=== PATIENT | female | born 1980 | race American Indian/Alaskan Native ===

== ENCOUNTER 2016-10-01 19:49 | Inpatient (IN) | payer BC, OTHER ==
[2016-10-01 20:26] VITALS: BMI 19.4
[2016-10-01] MEDS ORDERED: Lactated Ringer's 1,000 ML IV SCH (21:04)
--- NOTE | 2016-10-01 21:18 | OBHP ---
Datetime: 10/01/2016 21:07 IP Adm Impression: Term, intrauterine ; No Active Labor; Ruptured Membranes IP Admit Plan: Admit to unit Admit Comment, IP Provider: The patient is a 35-year-old 1 para 0 estimated due date 017 estimated gestational age 39 weeks. Patient presents to [facility] states she ruptured membranes at 4:45 PM on 09/30/2016. Patient states she went to [facility] in [place] was evaluated and was discharged home. Patient states she saw her provider today was evaluated and was told she had light meconium. The patient was referred to [facility] but wanted to deliver closer to her home, [place] so the patient came to [facility]. Brittany ent reports good movement no vaginal bleeding reports leakage of fluid. Patient states her pren ata care has been unremarkable. 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 Patient partner a nd trolley coach driver will think about it. I discussed the risks of expectant management I'd I discussed risk of a ugmentation the patient was given the opportunity to ask questions she was informed of the risks bene fits and alternatives to each. The patient's wishes to be respected. Patient for admission, routine labs, IV fluid hydration, Bedside sonogram vertex presentation, adequate pelvis, estimated weight 6 pounds. Pelvic Type - PN: Adequate Extremities - PN: Normal Abdomen - PN: Normal Back - PN: Normal Breast - PN: Not Done Lungs - PN: Normal Heart - PN: Normal Thyroid - PN: Normal Neurologic - PN: Normal HEENT - PN: Normal General - PN: Normal Weight - Estimated: 6 Presentation-Admit: Vertex FHR - Baseline A Provider: 145 Gestation - Est Wks by US: 39.0 Vital Signs Provider: Reviewed IP Chief Complaint: Suspected ruptured membranes; evaluation NICHD Variability Prov Fetus A: Moderate 6-25bpm NICHD Decel Fetus A IP Provider: None Dilatation, Provider: 3 Effacement, Provider: 90 Station, Provider: -2 Genitourinary Exam: Normal DTRs - PN: Normal
[2016-10-01] MEDS ORDERED: Penicillin G Potassium 5 MU in Sodium Chloride 0.9% 50 ML IVPB ONE (21:38)
[2016-10-01] MEDS ORDERED: Oxytocin 30 units/LR 500ML 30 U/500 ML BAG IV ONE ×2 (21:43→22:11)
[2016-10-01 22:08] LABS: BASO % 0.3 % (0.0-2.0); EOS # 0.1 K/uL (0.0-0.7); EOS % 0.6 % (0.0-4.0); HEMATOCRIT 31.9 % (34.0-47.0); LYMPH # 1.4 K/uL (1.0-4.3); LYMPH % 15.8 % (20.0-40.0); MEAN CELL VOLUME 94.6 fl (81.0-99.0); MEAN CORPUSCULAR HEMOGLOBIN 31.5 pg (27.0-31.0); MEAN CORPUSCULAR HGB CONC 33.3 g/dL (33.0-37.0); MEAN PLATELET VOLUME 9.2 fl (7.2-11.7); MONO # 0.8 K/uL (0.0-0.8); MONO % 8.8 % (0.0-10.0); NEUT # 6.5 K/uL (1.8-7.0); NEUT % 74.5 % (50.0-75.0); RED CELL DISTRIBUTION WIDTH 15.9 % (11.5-14.5); WHITE BLOOD COUNT 8.7 K/uL (4.8-10.8)
--- NOTE | 2016-10-01 22:14 | OBPN ---
Datetime: 10/01/2016 21:07 FHR - Baseline A Provider: 145 Gestation - Est Wks by US: 39.0 Weight - Estimated: 6 Presentation-Admit: Vertex IP Progress Note Comment: Discussed plan of care with patient and partner we discussed antibiotics w e discussed Pitocin augmentation. Patient states she is doing fine at the moment she has not felt feb rile she declines antibiotics like to proceed with Pitocin. We discussed risks benefits and alternati ves to expectant management we discussed antibiotic prophylaxis due to prolonged ruptured membranes t he patient was given the opportunity ask questions and all questions answered patient's wishes respec yvette Vital Signs Provider: Reviewed NICHD Variability Prov Fetus A: Moderate 6-25bpm Dilatation, Provider: 3 Effacement, Provider: 90 Station, Provider: -2 NICHD Decel Fetus A IP Provider: None
[2016-10-02] MEDS ORDERED: Oxycodone/Acetaminophen 5/325 mg Tab PO PRN ×2 (06:19)
[2016-10-02] MEDS ORDERED: Oxytocin 30 units/LR 500ML 30 U/500 ML BAG IV SCH (06:19)
--- NOTE | 2016-10-02 06:32 | OBDS ---
MATERNAL INFORMATION Provider Comments: Delivered live baby boy over a loose nuchal cord at 5:54 AM, the baby was bulb canchola ctioned on the perineum and transferred to maternal chest. Pediatrics was in attendance due to modera te meconium. The baby was handed off to the awaiting pediatricians for evaluation. The cord was clamp ed and cut and 3 vessels noted cord blood was obtained and sent to the lab. The placenta was delivere d at 6 AM intact, the estimated blood loss was 150 mL. There was a first-degree laceration was repair ed with 2-0 Rapide. The mother tolerated the procedure well and the baby went to the nursery with Apg ars of 9 and 9 VAGINAL DELIVERY Episiotomy: None Laceration Extension: First Degree Laceration Type: Perineal Laceration Repair: Yes Sponge Count Correct: Yes Sharps Count Correct: Yes
[2016-10-03 07:39] LABS: HEMATOCRIT 30.9 % (34.0-47.0); MEAN CELL VOLUME 94.9 fl (81.0-99.0); MEAN CORPUSCULAR HEMOGLOBIN 31.6 pg (27.0-31.0); MEAN CORPUSCULAR HGB CONC 33.3 g/dL (33.0-37.0); RED CELL DISTRIBUTION WIDTH 16.1 % (11.5-14.5); WHITE BLOOD COUNT 13.7 K/uL (4.8-10.8)
--- NOTE | 2016-10-03 11:03 | OBPPN ---
Datetime: 10/03/2016 08:25 PP Pain Prov: Within normal limits PP Nausea Prov: Denies PP Flatus Prov: Yes PP BM Prov: No PP Breasts Prov: Normal PP Heart Prov: Normal PP Lungs Prov: Normal PP Abdomen/Uterus Prov: Normal PP Lochia Prov: Normal PP Vulva/Perineum Prov: Normal PP CVA Tenderness Prov: Normal PP Extremities Prov: Normal PP C/S Incision Prov: Not Applicable PP Progress Prov: Normal PP Comments Phys Exam Prov: not acute distress Lungs CTA B/L RRR, S1S2 Abd: Soft, uterus umb level, non distended. BS+. No calf tenderness Alert and oriented PP Impression Prov: Normal progression PP Plan Prov: Continue present management PP Progress Note Prov: S: Patient seen at bedside on PPD1 in good mood. Denies CP, SOB, calf pain, p alpitations, dizziness, nausea or vomiting. Lochia is less than menses. Pain controlled with pain med s. Tolerating PO diet well. + Flatus no BM yet. Breast and bottle feeding. PE: See above A_P: 35 y/o in PPD1 normal progression -C/w current plan -Motrin and percocet PRN for pain -Reg diet -Encourage ambulation and -Anticipated DC 10/04/16 Mike Vargas PGY2 The patient was seen with the resident and I agree with the note Encourage ambulation, Motrin as needed, anticipate discharge in a.m. IP PP Procedures: None Vital Signs Provider PP: Reviewed; Within Normal Limits
--- NOTE | 2016-10-04 12:50 | OBPPN ---
Datetime: 10/04/2016 11:28 PP Nausea Prov: Denies PP Flatus Prov: Yes PP BM Prov: Yes PP Breasts Prov: Normal PP Heart Prov: Normal PP Lungs Prov: Normal PP Abdomen/Uterus Prov: Normal PP Lochia Prov: Normal PP Vulva/Perineum Prov: Normal PP CVA Tenderness Prov: Normal PP Extremities Prov: Normal PP C/S Incision Prov: Normal PP Progress Prov: Normal PP Comments Phys Exam Prov: not acute distress Lungs CTA B/L RRR, S1S2 Abd: Soft, uterus umb level, non distended. BS+. No calf tenderness Alert and oriented breast nonengorged PP Impression Prov: Normal progression PP Plan Prov: Discharge PP Progress Note Prov: 35 yo female now seen at bedside on PPD2, not in acute distress. Denies CP, SOB, calf pain, palpitations, dizziness, nausea or vomiting. Lochia is less than menses. Pain con trolled with pain meds. Tolerating PO diet well. Pt reports +BM and flatus. Breast and bottle feedin g. PE: See above A_P: 35 y/o in PPD2 uncomplicated -Ibuprofen 600 mg q6h PRN for pain -Reg diet -Encourage ambulation and -Discharge to home today Sultan Dumont, PGY-1 [facility] ADDENDUM: pt seen _ examined by me. agree with above assessment and plan. - benefits of reinforced. IP PP Procedures: None Vital Signs Provider PP: Reviewed
--- NOTE | 2016-10-04 12:55 | OBDCSUM ---
Datetime: 10/04/2016 10:26 Discharged to, Provider: Home Follow up at, Provider: SENIOR [employer]ICAL PROJECT MANAGER Disch Instr Activity: Normal activity Disch Instr Diet: Regular Discharge Instructions, Provider: Routine instructions given Discharge Diagnosis, Provider: Term Delivered Discharge Time: 10/04/2016 12:00 Follow up in weeks, Provider: 6 Weeks Disch Referrals: None Disch Activity Restrictions: No sexual activity; Nothing in vagina - Pringle, tampons, douche Contraception after Delivery: Undecided
--- NOTE | 2016-10-13 13:44 | OBADHP ---
Datetime: 10/01/2016 21:07 Admit Comment, IP Provider: The patient is a 35-year-old 1 para 0 estimated due date 017 estimated gestational age 39 weeks. Patient presents to [facility] states she ruptured membranes at 4:45 PM on 09/30/2016. Patient states she went to [facility] in [place] was evaluated and was discharged home. Patient states she saw her provider today was evaluated and was told she had light meconium. The patient was referred to [facility] but wanted to deliver closer to her home, [place] so the patient came to [facility]. Brittany ent reports good movement no vaginal bleeding reports leakage of fluid. Patient states her pren ata care has been unremarkable. 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 Patient partner a nd scrum coach will think about it. I discussed the risks of expectant management I'd I discussed risk of a ugmentation the patient was given the opportunity to ask questions she was informed of the risks bene fits and alternatives to each. The patient's wishes to be respected. Patient for admission, routine labs, IV fluid hydration, Bedside sonogram vertex presentation, adequate pelvis, estimated weight 6 pounds. Pelvic Type - PN: Adequate Extremities - PN: Normal Abdomen - PN: Normal Back - PN: Normal Breast - PN: Not Done Lungs - PN: Normal Heart - PN: Normal Thyroid - PN: Normal Neurologic - PN: Normal HEENT - PN: Normal General - PN: Normal Weight - Estimated: 6 Presentation-Admit: Vertex FHR - Baseline A Provider: 145 Gestation - Est Wks by US: 39.0 Vital Signs Provider: Reviewed IP Chief Complaint: Suspected ruptured membranes; evaluation NICHD Variability Prov Fetus A: Moderate 6-25bpm NICHD Decel Fetus A IP Provider: None Dilatation, Provider: 3 Effacement, Provider: 90 Station, Provider: -2 Genitourinary Exam: Normal DTRs - PN: Normal IP Adm Impression: Term, intrauterine ; No Active Labor; Ruptured Membranes IP Admit Plan: Admit to unit
== END 2016-10-04 15:00 | disposition home or self-care (01) | DRG 775 ==
LOC: H.EROB2 19:49 → H.L&D 21:04 → H.OB/GYN 10-02 18:12
PROVIDERS: ADMIT Obstetrics & Gynecology Gynecology; ATTEND Obstetrics & Gynecology Gynecology
PROC: 4A1HXCZ Monitoring of Products of Conception, Cardiac Rate, External Approach (ICD-10-PCS; 2016-10-01)
PROC: 10E0XZZ Delivery of Products of Conception, External Approach (ICD-10-PCS; principal; 2016-10-02)
PROC: 0HQ9XZZ Repair Perineum Skin, External Approach (ICD-10-PCS; 2016-10-02)
DX: O69.81X0 Labor and delivery complicated by cord around neck, without compression, not applicable or unspecified (principal); O77.0 Labor and delivery complicated by meconium in amniotic fluid; Z37.0 Single live birth; O70.0 First degree perineal laceration during delivery; Z3A.39 39 weeks gestation of pregnancy